=== PATIENT | male | born 1970 | race Two or more races ===

== ENCOUNTER 2022-12-26 12:00 | Emergency (ER) | payer OTHER ==
[~2022-12-26] VITALS: Ht 172.7 cm; Wt 102.0 kg
[2022-12-26 12:11] VITALS: BP 143/82
== END 2022-12-26 13:37 | disposition left against medical advice (07) ==
LOC: ER 12:00
DX: S62.306A Unspecified fracture of fifth metacarpal bone, right hand, initial encounter for closed fracture (principal); Z53.21 Procedure and treatment not carried out due to patient leaving prior to being seen by health care provider; W22.8XXA Striking against or struck by other objects, initial encounter; Y93.89 Activity, other specified; Y92.89 Other specified places as the place of occurrence of the external cause; Y99.8 Other external cause status
CPT/HCPCS: 73130